=== PATIENT | male | born 1990 | race African-American/Black ===

== ENCOUNTER 2017-04-07 08:34 | Emergency (ER) | payer MEDICAID ==
[~2017-04-07] VITALS: Ht 170.2 cm; Wt 57.0 kg
[2017-04-07] MEDS: DICYCLOMINE 10 MG/5 ML ORAL SYR PO STA (09:30)
[2017-04-07] MEDS: ONDANSETRON 4MG ODT PO STA (09:30)
[2017-04-07 09:41] LABS: BASOPHILS % 0.3 % (0.0-2.0); EOSINOPHILS % 0.7 % (0.0-5.0); HEMATOCRIT. 47.8 % (42.0-52.0); HEMOGLOBIN. 16.3 g/dL (14.0-18.0); LYMPHOCYTES % 15.5 % (20.0-50.0); MEAN CORPUSCULAR HEMOGLOBIN 28.9 pg (28.0-32.0); MEAN CORPUSCULAR VOLUME 84.7 fL (80.0-94.0); MEAN PLATELET VOLUME 7.7 fl (7.4-10.4); MONOCYTES % 14.6 % (2.0-8.0); NEUTROPHILS % 68.9 % (40.0-76.0); PLATELET 253 x1000/uL (130-400); RED BLOOD CELL COUNT 5.65 mill/uL (4.7-6.1)
[2017-04-07 09:47] LABS: KETONES URINE 3+ (NEGATIVE); LEUKOCYTE ESTERASE URINE NEGATIVE (NEGATIVE); NITRITE URINE NEGATIVE (NEGATIVE); OCCULT BLOOD URINE NEGATIVE (NEGATIVE); PROTEIN URINE TRACE (NEGATIVE); SPECIFIC GRAVITY URINE 1.034 (1.005-1.030)
[2017-04-07 09:53] LABS: CHLORIDE 101 mEq/L (98-107); CLARITY URINE CLEAR (CLEAR); COLOR URINE YELLOW (YELLOW)
[2017-04-07 11:14] VITALS: BP 132/71
== END 2017-04-07 11:16 | disposition home or self-care (01) ==
LOC: ER 09:29
DX: K52.9 Noninfective gastroenteritis and colitis, unspecified (principal)
CPT/HCPCS: 36415; 80053; 81003; 83690; 85025; 99284; Q0162; Z7610

== ENCOUNTER 2020-06-18 14:34 | Emergency (ER) | payer SELFPAY ==
[~2020-06-18] VITALS: Ht 170.2 cm; Wt 59.0 kg
[2020-06-18] MEDS ORDERED: TETANUS, DIPHTHERIA, PERTUSSIS VAC/PF 0.5ML (>7YR OLD) IM ONE (15:00)
[2020-06-18] MEDS ORDERED: BACITRACIN ZINC OINT UDPKT TOP ONE (15:00)
[2020-06-18] MEDS ORDERED: LIDOCAINE HCL/PF 1% 10 MG/ML 5ML VIAL IJ ONE (15:00)
[2020-06-18] MEDS ORDERED: ACETAMINOPHEN WITH CODEINE 300/30MG TABLET PO ONE (15:00)
[2020-06-18] MEDS ORDERED: BO1 TP (16:02)
[2020-06-18] MEDS ORDERED: IBUP-2029 MT (16:02)
[2020-06-18 16:37] VITALS: BP 135/98
== END 2020-06-18 16:39 | disposition home or self-care (01) ==
LOC: ER 15:13
DX: S09.8XXA Other specified injuries of head, initial encounter (principal); F12.10 Cannabis abuse, uncomplicated; Y08.89XA Assault by other specified means, initial encounter; Y93.89 Activity, other specified; Y92.89 Other specified places as the place of occurrence of the external cause; Y99.8 Other external cause status; Z79.899 Other long term (current) drug therapy
CPT/HCPCS: 12013; 70450; 90471; 90715; 99284; J3490